=== PATIENT | male | born 1945 | race Caucasian/White ===

== ENCOUNTER 2017-12-17 11:25 | Inpatient (IN) | payer OTHER ==
[~2017-12-17] VITALS: Ht 177.8 cm; Wt 119.2 kg
[2017-12-17] MEDS ORDERED: NORVASC10 MG PO (11:53)
[2017-12-17] MEDS ORDERED: ASPIR 8181 M1 PO (11:53)
[2017-12-17] MEDS ORDERED: DIGITEK125 MC2 PO (11:54)
[2017-12-17] MEDS ORDERED: DIOVAN HCT 11 TABLET PO (11:54)
[2017-12-17] MEDS ORDERED: HYDROCODONE CO120 ML PO (11:55)
[2017-12-17] MEDS ORDERED: GLUCOPHAGE1000 MG PO (11:56)
[2017-12-17] MEDS ORDERED: LOPRESSOR50 MG PO (11:56)
[2017-12-17] MEDS ORDERED: PRADAXA150 MG PO (11:57)
[2017-12-17 12:10] LABS: BASOPHIL (%) 0.8 % (0-1); BASOPHIL COUNT 0.1 K/uL (0-0.1); EOSINOPHIL (%) 2.6 % (0-5); EOSINOPHIL COUNT 0.2 K/uL (0-0.3); HEMATOCRIT 42.8 % (38.0-50.0); HEMOGLOBIN 13.7 G/DL (12.5-16.6); IMMATURE GRANULOCYTE (%) 0.3 % (0.0-0.7); LYMPHOCYTE (%) 18.6 % (15-42); LYMPHOCYTE COUNT 1.5 K/uL (1.0-2.8); MCH 25.1 PG (29.0-34.0); MCV 78.5 FL (86-99); MONOCYTE (%) 8.1 % (3-12); MONOCYTE COUNT 0.6 K/uL (0-0.8); NEUTROPHIL (%) 69.6 % (45-76); NEUTROPHIL COUNT 5.4 K/uL (1.8-6.4); PLATELET COUNT 269 K/uL (156-360); RBC DIS.WIDTH-CV 16.4 % (11.8-14.6); RBC DIS.WIDTH-SD 45.8 % (39-53); RED BLOOD COUNT 5.45 M/uL (4.00-5.50); WHITE BLOOD COUNT 7.8 K/uL (4.1-10.2)
[2017-12-17 12:15] LABS: INTER. NORMALIZED RATIO 1.3
[2017-12-17 12:18] LABS: PTT 54.2 SEC (25-37)
[2017-12-17 12:20] LABS: CHLORIDE 103 mEq/L (99-109); POTASSIUM 4.2 mEq/L (3.7-5.4); SODIUM 141 mEq/L (136-147)
[2017-12-17 12:22] LABS: GLUCOSE 124 mg/dL (70-99)
[2017-12-17 12:26] LABS: CREATININE 0.8 mg/dL (0.6-1.3); GFR ESTIMATE (CALCULATED) > 59 mL/min/ (58.99-99999)
[2017-12-17 12:27] LABS: UREA NITROGEN (BUN) 12 mg/dL (9-23)
[2017-12-17 12:31] LABS: TROP-I INTERPRETATION NEGATIVE; TROPONIN-I 0.02 ng/mL (0.0-0.30)
[2017-12-17] MEDS ORDERED: THERATRUM COMP1 EAC1 PO (15:28)
[2017-12-17 15:52] VITALS: BP 123/69
[2017-12-17 18:36] LABS: TROP-I INTERPRETATION NEGATIVE; TROPONIN-I 0.02 ng/mL (0.0-0.30)
[2017-12-17 19:26] VITALS: BP 116/71
[2017-12-18] VITALS (7 sets, daily range): BP systolic 112–159; BP diastolic 61–91
[2017-12-18 00:47] LABS: TROP-I INTERPRETATION NEGATIVE; TROPONIN-I 0.02 ng/mL (0.0-0.30)
[2017-12-18 10:10] LABS: HEMOGLOBIN A1c (GLYCOHEMOGLOB) 6.2 % (Below 5.7)
[2017-12-19 03:53] VITALS: BP 147/75
[2017-12-19 08:06] VITALS: BP 134/88
[2017-12-19 15:40] VITALS: BP 144/92
[2017-12-19 19:52] VITALS: BP 124/70
[2017-12-19 23:21] VITALS: BP 121/83
[2017-12-20 04:28] VITALS: BP 109/50
[2017-12-20 05:31] LABS: BASOPHIL COUNT 0.1 K/uL (0-0.1); EOSINOPHIL (%) 3.7 % (0-5); EOSINOPHIL COUNT 0.3 K/uL (0-0.3); HEMATOCRIT 42.5 % (38.0-50.0); HEMOGLOBIN 13.2 G/DL (12.5-16.6); IMMATURE GRANULOCYTE (%) 0.4 % (0.0-0.7); LYMPHOCYTE (%) 23.4 % (15-42); MCH 24.6 PG (29.0-34.0); MCHC 31.1 G/DL (30.0-36.0); MCV 79.1 FL (86-99); MONOCYTE (%) 11.3 % (3-12); MONOCYTE COUNT 0.9 K/uL (0-0.8); NEUTROPHIL (%) 60.2 % (45-76); PLATELET COUNT 280 K/uL (156-360); RBC DIS.WIDTH-CV 16.4 % (11.8-14.6); RBC DIS.WIDTH-SD 46.6 % (39-53); RED BLOOD COUNT 5.37 M/uL (4.00-5.50); WHITE BLOOD COUNT 8.3 K/uL (4.1-10.2)
[2017-12-20 06:12] LABS: CHLORIDE 103 MEQ/L (99-109); CREATININE 0.7 MG/DL (0.6-1.3); GFR ESTIMATE (CALCULATED) > 59 mL/min/ (58.99-99999); GLUCOSE 138 mg/dL (70-99); MAGNESIUM 1.9 mg/dl (1.3-2.7); POTASSIUM 3.4 MEQ/L (3.7-5.4); SODIUM 139 MEQ/L (136-147); UREA NITROGEN (BUN) 13 mg/dL (9-23)
[2017-12-20 08:30] VITALS: BP 138/87
[2017-12-20 12:14] VITALS: BP 135/83
[2017-12-20 18:03] VITALS: BP 109/67
[2017-12-20 20:50] VITALS: BP 113/71
[2017-12-21 00:55] VITALS: BP 125/79
[2017-12-21 05:39] VITALS: BP 115/67
[2017-12-21 05:51] LABS: CHLORIDE 106 MEQ/L (99-109); CREATININE 0.7 MG/DL (0.6-1.3); GFR ESTIMATE (CALCULATED) > 59 mL/min/ (58.99-99999); GLUCOSE 133 mg/dL (70-99); POTASSIUM 3.9 MEQ/L (3.7-5.4); SODIUM 140 MEQ/L (136-147); UREA NITROGEN (BUN) 11 mg/dL (9-23)
[2017-12-21 07:34] VITALS: BP 129/72
[2017-12-21 08:00] VITALS: BP 138/66
[2017-12-21] MEDS ORDERED: ATORVASTATIN CA40 MG PO (09:52)
[2017-12-21] MEDS ORDERED: CLOPIDOGREL75 MG PO (09:52)
== END 2017-12-21 12:46 | disposition home or self-care (01) | DRG 247 ==
LOC: EME 11:25 → EDOF 14:14 → 4SOUTH 14:14 → ENRESERV 14:16 → 4SOUTH 15:37 → ENRESERV 12-20 14:51 → 4SOUTH 12-20 17:25 → 4EAST 12-20 17:52 → ENPENDDIS 12-21 → 4EAST 12-21 12:46
PROVIDERS: Emergency Medicine; Internal Medicine; Physician Assistant
DX: I25.110 Atherosclerotic heart disease of native coronary artery with unstable angina pectoris (principal); E66.01 Morbid (severe) obesity due to excess calories; I10 Essential (primary) hypertension; I48.2 Chronic atrial fibrillation; E11.9 Type 2 diabetes mellitus without complications; E78.5 Hyperlipidemia, unspecified; M19.90 Unspecified osteoarthritis, unspecified site; I48.1 Persistent atrial fibrillation; Z79.82 Long term (current) use of aspirin; Z79.899 Other long term (current) drug therapy; Z87.891 Personal history of nicotine dependence; Z79.01 Long term (current) use of anticoagulants; Z68.37 Body mass index [BMI] 37.0-37.9, adult; Z82.49 Family history of ischemic heart disease and other diseases of the circulatory system; Z91.14 Patient's other noncompliance with medication regimen
CPT/HCPCS: 71045; 78452; 80048; 80162; 82948; 83036; 83735; 84484; 85025; 85347; 85610; 85730; 93005; 93017; 99281; 99284; A9500; C1725; C1769; C1874; C1887; G0378; J1644; J1815; J2250; J2785; J3010; J3246; J3480